=== PATIENT | female | born 1955 | race Caucasian/White ===

== ENCOUNTER → 2019-10-28 | Outpatient (CLI) | payer MEDICARE, BC ==
[~2019-10-28] MED LIST: ACID REFLUX PO; DULO30CA2 PO; FURO20TA3 PO; GABA300C10 PO; METH750T2 PO; MONT10TA6 PO; ROPI2TAB8 PO; SPIR25TA5 PO
[2019-10-28 09:16] LABS: BASOPHILS # (AUTO) 0.06 x10^3/uL (0-0.1); BASOPHILS % (AUTO) 1 % (0-1); EOSINOPHILS # (AUTO) 0.16 x10^3/uL (0-0.4); EOSINOPHILS % (AUTO) 2 % (1-7); LYMPHOCYTES # (AUTO) 1.51 x10^3/uL (1-3.4); LYMPHOCYTES % (AUTO) 16 % (22-44); MD NO; MEAN CORPUSCULAR HEMOGLOBIN 31.4 pg (27.0-34.8); MEAN CORPUSCULAR HGB CONC 33.6 g/dL (32.4-35.8); MEAN CORPUSCULAR VOLUME 93.6 fL (80-100); MEAN PLATELET VOLUME 8.2 fL (7.4-10.4); MONOCYTES # (AUTO) 0.55 x10^3/uL (0.2-0.8); MONOCYTES % (AUTO) 6 % (2-9); NEUTROPHILS % (AUTO) 76 % (42-75); PLATELET COUNT 353 x10^3/uL (130-400); RED CELL DISTRIBUTION WIDTH 13.5 % (9.6-15.2)
[2019-10-28 09:24] LABS: ALANINE AMINOTRANSFERASE 27 U/L (12-78); ALBUMIN 3.7 g/dL (3.4-5.0); ANION GAP 6 mmol/L (5-15); CALCIUM 8.8 mg/dL (8.5-10.1); CHLORIDE 104 mmol/L (98-107)
[2019-10-28 09:26] LABS: ALKALINE PHOSPHATASE 107 U/L (45-117); BILIRUBIN,TOTAL 0.6 mg/dL (0.2-1.0); TOTAL PROTEIN 7.8 g/dL (6.4-8.2)
== END | disposition home or self-care (01) ==
LOC: STAR 08:14
PROVIDERS: ATTEND Orthopaedic Surgery
DX: Z01.818 Encounter for other preprocedural examination (principal); M16.12 Unilateral primary osteoarthritis, left hip
CPT/HCPCS: 36415; 80053; 85025; 87081; 93005

== ENCOUNTER 2019-11-03 07:25 | Observation (INO) | payer MEDICARE, BC ==
[~2019-11-03] VITALS: Ht 154.9 cm; Wt 101.0 kg
[~2019-11-03 07:25] MED LIST changes: +DEXAMETHASONE 4 MG/ML, 1ML IVPush ONE; +EPINEPHRINE 1 MG/ML, 1ML ONE; +KETOROLAC 60 MG/2 ML ONE; +ROPIvacaine/PF 0.2%, 20 ML ONE; +SODIUM CHLORIDE 0.9% 50 ML ONE; +TRANEXAMIC ACID 100 MG/ML, 10ML ONE; +VANCOMYCIN 1,000 MG ONE
[2019-11-03] MEDS ORDERED: LABETALOL 5MG/ML, 20ML IV PRN (08:00)
[2019-11-03] MEDS ORDERED: MEPERIDINE/PF 25MG/ML,1ML IVPush PRN (08:00)
[2019-11-03] MEDS ORDERED: ONDANSETRON 2MG/ML, 2ML IV PRN ×2 (08:00→12:00)
[2019-11-03] MEDS ORDERED: EPHEDRINE 50 MG/ML, 1ML IVPush PRN (08:00)
[2019-11-03] MEDS ORDERED: PROMETHAZINE 25 MG/ML, 1ML IV PRN (08:00)
[2019-11-03] MEDS ORDERED: HYDROmorphone 2 MG/ML, 1ML IVPush PRN (08:00)
[2019-11-03] MEDS ORDERED: hydrALAzine 20 MG/ML, 1ML IV PRN (08:00)
[2019-11-03] MEDS ORDERED: FENTANYL PF 250 MCG/5ML ONE (08:07)
[2019-11-03] MEDS ORDERED: LACTATED RINGERS 1,000 ML IV SCH (08:07)
[2019-11-03] MEDS ORDERED: LIDOCAINE-MPF 2% ,5ML ONE (08:08)
[2019-11-03] MEDS ORDERED: CEFAZOLIN 1,000 MG ONE (08:08)
[2019-11-03] MEDS ORDERED: SODIUM CHLORIDE 0.9% PF 10ML ONE (08:08)
[2019-11-03] MEDS ORDERED: DEXAMETHASONE 4 MG/ML, 1ML ONE (08:08)
[2019-11-03] MEDS ORDERED: ONDANSETRON 2MG/ML, 2ML ONE (08:08)
[2019-11-03] MEDS ORDERED: PROPOFOL 10 MG/ML, 20ML ONE (08:08)
[2019-11-03] MEDS ORDERED: SUCCINYLCHOLINE 20 MG/ML, 10ML ONE (08:08)
[2019-11-03] MEDS ORDERED: MIDAZOLAM 1 MG/ML, 2ML ONE (08:15)
[2019-11-03 08:20] VITALS: BP 137/84
[2019-11-03] MEDS ORDERED: ACETAMINOPHEN 500 MG TABLET PO ONE (08:30)
[2019-11-03] MEDS ORDERED: GABAPENTIN 300 MG CAPSULE PO ONE (08:30)
[2019-11-03] MEDS ORDERED: LIDOCAINE-MPF 1%, 2ML INFIL ONE (08:30)
[2019-11-03] MEDS ORDERED: GLYCOPYRROLATE 0.2MG/1ML, 5ML ONE (09:49)
[2019-11-03] MEDS ORDERED: hydrALAzine 20 MG/ML, 1ML ONE ×2 (09:49→10:41)
[2019-11-03] MEDS ORDERED: FENTANYL PF 100 MCG/2ML ONE ×4 (10:30→12:03)
[2019-11-03] MEDS ORDERED: SENNA/DOCUSATE TABLET PO PRN (12:00)
[2019-11-03] MEDS ORDERED: ROPINIROLE 1MG TABLET PO PRN (12:00)
[2019-11-03] MEDS ORDERED: ONDANSETRON 4 MG TABLET PO PRN (12:00)
[2019-11-03] MEDS ORDERED: MAGNESIUM HYDROXIDE 8%, 30ML UDC PO PRN (12:00)
[2019-11-03] MEDS: CALCIUM/VITAMIN D3 250-125 TABLET PO SCH ×2 (12:00→17:19)
[2019-11-03] MEDS ORDERED: PROMETHAZINE 12.5 MG SUPP PR PRN (12:00)
[2019-11-03] MEDS ORDERED: DIAZEPAM 5 MG TABLET PO PRN (12:00)
[2019-11-03] MEDS ORDERED: DIPHENHYDRAMINE 25 MG CAPSULE PO PRN (12:00)
[2019-11-03] MEDS ORDERED: METHOCARBAMOL 750 MG TABLET PO PRN (12:00)
[2019-11-03] MEDS ORDERED: PSYLLIUM PACKET PO PRN (12:00)
[2019-11-03] MEDS ORDERED: BISACODYL 10 MG SUPP PR PRN (12:00)
[2019-11-03] MEDS ORDERED: POLYETHYLENE GLYCOL 17 GM PACKET PO PRN (12:00)
[2019-11-03] MEDS ORDERED: HYDROmorphone 1 MG/ML, 1ML INJ IVPush PRN (12:00)
[2019-11-03] MEDS ORDERED: ZOLPIDEM 5MG TABLET PO PRN (12:00)
[2019-11-03] MEDS ORDERED: OXYcodone 5 MG/5 ML ORAL.SOL UDC ONE ×2 (12:03→12:25)
[2019-11-03] MEDS: FENTANYL PF 100 MCG/2ML IV PRN ×3 (12:05→12:25)
[2019-11-03] MEDS ORDERED: TRANEXAMIC ACID 1,000 MG in SODIUM CHLORIDE 0.9% 100 ML IVPB ONE (12:15)
[2019-11-03] MEDS: OXYcodone 5 MG/5 ML ORAL.SOL UDC PO PRN ×2 (12:20→12:30)
[2019-11-03 13:45] VITALS: BP 115/74
[2019-11-03] MEDS: SODIUM CHLORIDE 0.9% 1,000 ML IV SCH (14:37)
[2019-11-03] MEDS: ACETAMINOPHEN 500 MG TABLET PO SCH ×2 (14:37→20:30)
[2019-11-03] MEDS: KETOROLAC 30 MG/1 ML IV SCH (17:19)
[2019-11-03] MEDS: ASPIRIN 81 MG TABLET EC PO SCH (17:19)
[2019-11-03] MEDS: HYDROcodone/APAP 10/325 MG TABLET PO PRN ×2 (17:20→21:52)
[2019-11-03] MEDS: FERROUS SULFATE 325 MG TABLET PO SCH (17:20)
[2019-11-03] MEDS: CEFAZOLIN PMX 2GM/50ML 50 ML IVPB SCH (17:20)
[2019-11-03 20:43] VITALS: BP 147/82
[2019-11-03] MEDS: DOCUSATE 100 MG CAPSULE PO SCH (21:53)
[2019-11-03] MEDS: ALUMINUM/MAG/SIMETHICONE 30 ML UDC PO PRN (22:09)
[2019-11-03 22:58] VITALS: BP 122/74
[2019-11-04] MEDS: KETOROLAC 30 MG/1 ML IV SCH ×2 (00:07→06:22)
[2019-11-04] MEDS: CEFAZOLIN PMX 2GM/50ML 50 ML IVPB SCH (01:32)
[2019-11-04] MEDS: ACETAMINOPHEN 500 MG TABLET PO SCH ×2 (02:30→08:05)
[2019-11-04] MEDS: HYDROcodone/APAP 10/325 MG TABLET PO PRN ×2 (02:37→06:22)
[2019-11-04 04:00] VITALS: BP 123/84
[2019-11-04] MEDS: ASPIRIN 81 MG TABLET EC PO SCH (05:22)
[2019-11-04] MEDS ORDERED: DEXAMETHASONE 4 MG/ML, 1ML IVPush ONE (06:00)
[2019-11-04 07:52] VITALS: BP 164/80
[2019-11-04] MEDS: FERROUS SULFATE 325 MG TABLET PO SCH (08:05)
[2019-11-04] MEDS: DOCUSATE 100 MG CAPSULE PO SCH (08:05)
[2019-11-04] MEDS: CALCIUM/VITAMIN D3 250-125 TABLET PO SCH (08:05)
[2019-11-04] MEDS: SODIUM CHLORIDE 0.9% 1,000 ML IV SCH (08:06)
[2019-11-04] MEDS ORDERED: FUROSEMIDE 40 MG TABLET PO SCH (09:00)
[2019-11-04] MEDS ORDERED: SPIRONOLACTONE 25 MG TABLET PO SCH (09:00)
[2019-11-04] MEDS ORDERED: MULTIVITAMINS/MINERALS TABLET PO SCH (09:00)
[2019-11-04] MEDS ORDERED: MONTELUKAST 10 MG TABLET PO SCH (09:00)
[2019-11-04] MEDS ORDERED: GABAPENTIN 300 MG CAPSULE PO SCH (09:00)
[2019-11-04] MEDS ORDERED: DULOXETINE 30 MG CAPSULE.DR PO SCH (09:00)
[2019-11-04] MEDS ORDERED: ASCORBIC ACID 500 MG TABLET PO SCH (09:00)
[2019-11-04] MEDS: ALUMINUM/MAG/SIMETHICONE 30 ML UDC PO PRN (09:41)
== END 2019-11-04 10:28 | disposition home or self-care (01) ==
LOC: OUT 07:25 → ORIP 11:42 → 4NE 13:40 → DCLOUNGE 11-04 10:17
PROVIDERS: ADMIT Orthopaedic Surgery; ATTEND Orthopaedic Surgery
DX: M16.12 Unilateral primary osteoarthritis, left hip (principal); I11.0 Hypertensive heart disease with heart failure; I50.9 Heart failure, unspecified; J45.909 Unspecified asthma, uncomplicated; Z79.899 Other long term (current) drug therapy
CPT/HCPCS: 27130; 36415; 72170; 85014; 85018; 96365; 96366; 96375; 96376; 97161; 97165; C1713; C1776; G0378; J0171; J0330; J0360; J0690; J1100; J1885; J2250; J2405; J2704; J2795; J3010; J3490; J7030; J7120; J3370